=== PATIENT | male | born 1990 | race Caucasian/White ===

== ENCOUNTER 2018-04-18 23:46 | Emergency (ER) | payer OTHER, SELFPAY ==
[2018-04-19] MEDS ORDERED: ONDANSETRON 4 MG (ODT) TAB ONE (00:35)
[2018-04-19] MEDS ORDERED: PROMETHAZINE 25 MG/ML VIAL ONE ×2 (01:05→01:48)
[2018-04-19] MEDS ORDERED: FENTANYL CITR 100 MCG/2 ML ONE (01:06)
[2018-04-19 01:27] LABS: Absolute Lymphocytes (CBC) 2.6 K/uL (0.7-4.9); Absolute Monocytes 0.7 K/uL (0.1-1.3); Absolute Neutrophil 3.4 K/uL (1.8-8.0); Basophils % 0.7 % (0-1.3); Eosinophils % 1.3 % (0-4.4); Hematocrit 43.1 % (39.6-49.0); Lymphocytes % 38.5 % (15.3-44.8); MCH 31.1 pg (27.0-35.0); MCV 86.1 fL (80-100); MPV 8.8 fL (7.6-11.3); Monocytes % 9.8 % (3.3-12.3); RBC Red Blood Cell Count 5.01 M/uL (4.33-5.43)
[2018-04-19 01:48] LABS: Potassium 3.8 mmol/L (3.5-5.1)
--- NOTE | 2018-04-19 02:00 | EDPHYS ---
Physician Documentation [facility] Name: Hever Knight Age: 27 yrs Sex: Male : 1990 Arrival Date: 04/18/2018 Time: 23:51 Bed 3 Private MD: ED Physician Claudio Felder HPI: 04/19 00:30 This 27 yrs old Male presents to ER via Wheelchair with complaints of Head jr8 Injury-Adult. 00:30 The patient or guardian reports a laceration, 2.5 cm(s), tenderness. The complaints jr8 affect the left side of the back of head. Onset: The symptoms/episode began/occurred acutely, today. Associated signs and symptoms: Loss of consciousness: This patient experience a loss of consciousness, Pertinent positives: nausea. Severity of symptoms: At their worst the symptoms were moderate, in the emergency department the symptoms are unchanged. The patient has not experienced similar symptoms in the past. The patient has not recently seen a physician. Patient was in L\T\D and had syncopal episode while epidural was being given to his . Stated that he had some nausea and dizziness prior to them starting the procedure. Usually does not have this problem. Currently back to baseline other then having nausea and headache . Historical: - Allergies: 00:19 Wasps; bb - Home Meds: 00:19 None [Active]; bb - PMHx: 00:19 None; bb - PSHx: 00:19 right talus; right wrist scope; dental surgery; bb - Immunization history:: Adult Immunizations up to date, Last tetanus immunization: up to date. - Social history:: Smoking status: Patient/guardian denies using tobacco, Patient uses alcohol, but reports only rare drinking. Patient/guardian denies using street drugs. - Ebola Screening: : No symptoms or risks identified at this time. ROS: 00:30 Eyes: Negative for injury, pain, redness, and discharge, ENT: Negative for injury, jr8 pain, and discharge, Neck: Negative for injury, pain, and swelling, Cardiovascular: Negative for chest pain, palpitations, and edema, Respiratory: Negative for shortness of breath, cough, wheezing, and pleuritic chest pain, Abdomen/GI: Negative for abdominal pain, vomiting, diarrhea, and constipation. Positive for nausea Back: Negative for injury and pain, MS/Extremity: Negative for injury and deformity. 00:30 Skin: Positive for laceration(s), of the left side of the back of head. 00:30 Neuro: Positive for headache, syncope, Negative for altered mental status, dizziness, gait disturbance, hearing loss, numbness, seizure activity, speech changes, tingling, tinnitus, tremor, visual changes, weakness. Exam: 00:30 Eyes: Pupils equal round and reactive to light, extra-ocular motions intact. Lids and jr8 lashes normal. Conjunctiva and sclera are non-icteric and not injected. Cornea within normal limits. Periorbital areas with no swelling, redness, or edema. ENT: Nares patent. No nasal discharge, no septal abnormalities noted. Tympanic membranes are normal and external auditory canals are clear. Oropharynx with no redness, swelling, or masses, exudates, or evidence of obstruction, uvula midline. Mucous membranes moist. Neck: Trachea midline, no thyromegaly or masses palpated, and no cervical lymphadenopathy. Supple, full range of motion without nuchal rigidity, or vertebral point tenderness. No Meningismus. Cardiovascular: Regular rate and rhythm with a normal S1 and S2. Grade 2 systolic murmur present. Normal PMI, no JVD. No pulse deficits. Respiratory: Lungs have equal breath sounds bilaterally, clear to auscultation and percussion. No rales, rhonchi or wheezes noted. No increased work of breathing, no retractions or nasal flaring. Abdomen/GI: Soft, non-tender, with normal bowel sounds. No distension or tympany. No guarding or rebound. No evidence of tenderness throughout. Back: No spinal tenderness. No costovertebral tenderness. Full range of motion. Skin: Warm, dry with normal turgor. Normal color with no rashes, no lesions, and no evidence of cellulitis. MS/ Extremity: Pulses equal, no cyanosis. Neurovascular intact. Full, normal range of motion. Neuro: Awake and alert, GCS 15, oriented to person, place, time, and situation. Cranial nerves II-XII grossly intact. Motor strength 5/5 in all extremities. Sensory grossly intact. Cerebellar exam normal. Normal gait. 00:30 Head/face: Noted is a laceration(s), that is deep, that is linear, 2.5 cm(s), of the left side of the back of head. Vital Signs: 00:19 BP 126 / 65; Pulse 45; Resp 16 S; Temp 97.1(TE); Pulse Ox 100% on R/A; Weight 90.72 kg bb (R); Height 6 ft. 5 in. (195.58 cm) (R); 00:52 BP 128 / 62; Pulse 44; Resp 16; Pulse Ox 100% on R/A; ak1 01:20 BP 133 / 67; Pulse 51; Resp 16; Pulse Ox 100% on R/A; ak1 00:19 Body Mass Index 23.72 (90.72 kg, 195.58 cm) Dorita Coma Score: 00:16 Eye Response: spontaneous(4). Verbal Response: oriented(5). Motor Response: obeys commands(6). Total: 15. 00:30 Eye Response: spontaneous(4). Verbal Response: oriented(5). Motor Response: obeys [facility] commands(6). Total: 15. Laceration: 01:53 Wound Repair of 2.5cm ( 1.0in ) subcutaneous laceration to left side of the back of jr8 head. Linear shaped.. Minimal bleeding noted.. Distal neuro/vascular/tendon intact. Wound prep: Moderate cleansing with hibiclenz, Wound irrigation with saline, Wound explored extensively. Skin closed with 2 adalberto Adalberto using staple gun. Patient tolerated well. MDM: 00:11 Patient medically screened. jr8 00:53 Data reviewed: vital signs, nurses notes, EKG, radiologic studies, CT scan. Data jr8 interpreted: Pulse oximetry: on room air is 100 %. Interpretation: normal. Counseling: I had a detailed discussion with the patient and/or guardian regarding: the historical points, exam findings, and any diagnostic results supporting the discharge/admit diagnosis, radiology results. ED course: Patient with history of murmur. Has had full work up by cardiology including echocardiogram. No acute findings and is benign per patient. This was more then likely vasovagal in nature. Feeling better. All vitals normal. Will send to f/u with PCP which patient is good with. 04/19 00:16 Order name: CBC with Diff jr8 04/19 00:16 Order name: CT Head Brain wo Cont jr8 04/19 00:58 Order name: CBC with Diff; Complete Time: 01:52 8 13 00:58 Order name: Basic Metabolic Panel; Complete Time: 01:52 04/19 00:16 Order name: EKG; Complete Time: 00:17 04/19 00:16 Order name: Cardiac monitoring; Complete Time: 00:41 04/19 00:16 Order name: EKG - Nurse/Tech; Complete Time: 00:40 04/19 00:16 Order name: O2 Per Protocol; Complete Time: 00:04/19 00:16 Order name: O2 Sat Monitoring; Complete Time: 00:04/19 00:58 Order name: IV; Complete Time: Administered Medications: 00:39 Drug: Zofran 4 mg Route: PO; ak1 01:12 Follow up: Response: Nausea unchanged ak1 :13 Drug: fentaNYL (PF) 25 mcg Route: IVP; Site: right antecubital; ak1 01:46 Follow up: Response: No adverse reaction ak1 01:14 CANCELLED (pt requested only 25mcg IVP, ERP notified): fentaNYL (PF) 50 mcg IVP once ak1 01:47 Not Given (Patient Refused): Phenergan 12.5 mg IVP once ak1 01:47 Drug: Phenergan 6.25 mg Route: IVP; Site: right antecubital; ak1 01:47 Follow up: Response: No adverse reaction ak1 Disposition: 06:48 Co-signature as Attending Physician, Claudio Felder MD I agree with the assessment and federico plan of care. Disposition: 04/19/18 01:59 Discharged to Home. Impression: Laceration without foreign body of scalp, Postconcussional syndrome. - Condition is Stable. - Discharge Instructions: Laceration Care, Adult, Post-Concussion Syndrome. - Prescriptions for ondansetron 4 mg Oral tablet,disintegrating - place 1 tablet by TRANSLINGUAL route every 6 hours As needed; 12 tablet. - Medication Reconciliation Form, Thank You Letter, Antibiotic Education, Prescription Opioid Use form. - Follow up: Private Physician; When: 5 - 6 days; Reason: Wound Recheck, Recheck today's complaints, Continuance of care, Staple/Suture removal, Re-evaluation by your physician. - Problem is new. - Symptoms have improved. Signatures: Dispatcher [employer] EDMS Claudio Felder MD MD cha Ballard, Brenda, RN RN Rolando Morris PA PA jr8 Padmini Light RN RN ak1 Corrections: (The following items were deleted from the chart) 00:28 00:16 IV Saline Lock ordered. 8 ak1 00:35 00:17 Chest Single View+RAD.RAD.BRZ ordered. EDCA EDCA 00:37 00:17 CBC with Automated Diff ordered. EDCA EDCA 00:37 00:17 PROTIME (+INR)+COAG.LAB.BRZ ordered. EDCA EDMS 00:38 00:17 Basic Metabolic Panel ordered. EDCA EDMS 00:38 00:17 MAGNESIUM+C.LAB.BRZ ordered. EDCA EDCA 00:38 00:17 PROBNP+C.LAB.BRZ ordered. EDCA EDCA 00:38 00:17 TROPONIN (EMERG DEPT USE ONLY)+C.LAB.BRZ ordered. [facility] EDCA 00:40 00:16 Labs collected and sent ordered. [facility] 00:53 00:30 Eyes: Pupils equal round and reactive to light, extra-ocular motions intact. Lids jr8 and lashes normal. Conjunctiva and sclera are non-icteric and not injected. Cornea within normal limits. Periorbital areas with no swelling, redness, or edema. ENT: Nares patent. No nasal discharge, no septal abnormalities noted. Tympanic membranes are normal and external auditory canals are clear. Oropharynx with no redness, swelling, or masses, exudates, or evidence of obstruction, uvula midline. Mucous membranes moist. Neck: Trachea midline, no thyromegaly or masses palpated, and no cervical lymphadenopathy. Supple, full range of motion without nuchal rigidity, or vertebral point tenderness. No Meningismus. Cardiovascular: Regular rate and rhythm with a normal S1 and S2. No gallops, murmurs, or rubs. Normal PMI, no JVD. No pulse deficits. Respiratory: Lungs have equal breath sounds bilaterally, clear to auscultation and percussion. No rales, rhonchi or wheezes noted. No increased work of breathing, no retractions or nasal flaring. Abdomen/GI: Soft, non-tender, with normal bowel sounds. No distension or tympany. No guarding or rebound. No evidence of tenderness throughout. Back: No spinal tenderness. No costovertebral tenderness. Full range of motion. Skin: Warm, dry with normal turgor. Normal color with no rashes, no lesions, and no evidence of cellulitis. MS/ Extremity: Pulses equal, no cyanosis. Neurovascular intact. Full, normal range of motion. Neuro: Awake and alert, GCS 15, oriented to person, place, time, and situation. Cranial nerves II-XII grossly intact. Motor strength 5/5 in all extremities. Sensory grossly intact. Cerebellar exam normal. Normal gait. jr8 01:14 00:58 fentaNYL (PF) 50 mcg IVP once ordered. jr8 ak1 02:14 01:59 04/19/2018 01:59 Discharged to Home. Impression: Laceration without foreign body ak1 of scalp; Postconcussional syndrome. Condition is Stable. Forms are Medication Reconciliation Form, Thank You Letter, Antibiotic Education, Prescription Opioid Use. Follow up: Private Physician; When: 5 - 6 days; Reason: Wound Recheck, Recheck today's complaints, Continuance of care, Staple/Suture removal, Re-evaluation by your physician. Problem is new. Symptoms have improved. jr8
--- NOTE | 2018-04-19 02:00 | ER ---
Nurse's Notes [facility] Name: Hever Knight Age: 27 yrs Sex: Male : 1990 Arrival Date: 04/18/2018 Time: 23:51 Bed 3 Private MD: Diagnosis: Laceration without foreign body of scalp;Postconcussional syndrome Presentation: 04/19 00:16 Presenting complaint: Mother states: pt was at 's epidural procedure and passed out bb hitting the back of his head and receiving a laceration with swelling, pt states he is nauseous. Transition of care: patient was not received from another setting of care. Mechanism of Injury: The problem was sustained at the hospital, resulted from a fall, from a standing position. Onset of symptoms was April 19, 2018. Risk Assessment: Do you want to hurt yourself or someone else? Patient reports no desire to harm self or others. Initial Sepsis Screen: Does the patient meet any 2 criteria? No. Patient's initial sepsis screen is negative. Does the patient have a suspected source of infection? No. Patient's initial sepsis screen is negative. Care prior to arrival: None. 00:16 Method Of Arrival: Wheelchair bb 00:16 Acuity: PURNIMA 3 bb Historical: - Allergies: 00:19 Wasps; bb - Home Meds: 00:19 None [Active]; bb - PMHx: 00:19 None; bb - PSHx: 00:19 right talus; right wrist scope; dental surgery; bb - Immunization history:: Adult Immunizations up to date, Last tetanus immunization: up to date. - Social history:: Smoking status: Patient/guardian denies using tobacco, Patient uses alcohol, but reports only rare drinking. Patient/guardian denies using street drugs. - Ebola Screening: : No symptoms or risks identified at this time. Screenin:40 Abuse screen: Denies threats or abuse. Denies injuries from another. Nutritional ak1 screening: No deficits noted. Tuberculosis screening: No symptoms or risk factors identified. Fall Risk Fall in past 12 months (25 points). Assessment: 00:40 General: Appears uncomfortable, Behavior is calm, cooperative. Pain: Complains of pain ak1 in left side of the back of head. Neuro: Level of Consciousness is awake, alert, obeys commands, Oriented to person, place, time, situation, Appropriate for age Immigration Attorney are equal bilaterally Moves all extremities. Gait is steady, Speech is normal, Facial symmetry appears normal. Cardiovascular: Reports he has had a hear mummer since childhood but failed to tell the provider upon assessment. ERP notified and new verbal orders given. Respiratory: No deficits noted. GI: Reports nausea. : No signs and/or symptoms were reported regarding the genitourinary system. EENT: No signs and/or symptoms were reported regarding the EENT system. Derm: Wound noted left side of the back of head Wound is laceration s/p fall after watching his receive her epidural while upstairs in L\T\D. Musculoskeletal: No signs and/or symptoms reported regarding the musculoskeletal system. 00:44 Reassessment: ice pack applied. ak1 00:54 Reassessment: supplies for ERP to staple or suture pt placed at bedside. . ak1 01:19 Reassessment: pt requested only 25 mcg fentanyl and no Phenergan as to not be drowsy ak1 for his child's delivery, ERP notified. Vital Signs: 00:19 BP 126 / 65; Pulse 45; Resp 16 S; Temp 97.1(TE); Pulse Ox 100% on R/A; Weight 90.72 kg bb (R); Height 6 ft. 5 in. (195.58 cm) (R); 00:52 BP 128 / 62; Pulse 44; Resp 16; Pulse Ox 100% on R/A; ak1 01:20 BP 133 / 67; Pulse 51; Resp 16; Pulse Ox 100% on R/A; ak1 00:19 Body Mass Index 23.72 (90.72 kg, 195.58 cm) bb Orchard Coma Score: 00:16 Eye Response: spontaneous(4). Verbal Response: oriented(5). Motor Response: obeys bb commands(6). Total: 15. 00:30 Eye Response: spontaneous(4). Verbal Response: oriented(5). Motor Response: obeys jr commands(6). Total: 15. ED Course: 04/18 23:51 Patient arrived in ED. es 04/19 00:11 Rolando Arevalo PA is PHCP. jr8 00:11 Claudio Felder MD is Attending Physician. jr8 00:18 Triage completed. bb 00:18 Krenek, Padmini, RN is Primary Nurse. ak1 00:19 Arm band placed on Patient placed in an exam room, on a stretcher, on pulse oximetry. bb Family accompanied patient. 00:40 Patient has correct armband on for positive identification. Bed in low position. Call ak1 light in reach. Side rails up X2. Adult w/ patient. hall monitor on. Pulse ox on. NIBP on. 00:54 CT Head Brain wo Cont In Process Unspecified. EDMS 01:48 No provider procedures requiring assistance completed. Inserted saline lock: 20 gauge ak1 in right antecubital area, using aseptic technique. ,using aseptic technique. placed by Oracio Panchal Blood collected. 02:05 CT completed. Patient tolerated procedure well. Patient moved to CT via stretcher. Patient moved back from CT. 02:09 IV discontinued, intact, bleeding controlled, No redness/swelling at site. Pressure ak1 dressing applied. Administered Medications: 00:39 Drug: Zofran 4 mg Route: PO; ak1 01:12 Follow up: Response: Nausea unchanged ak1 01:13 Drug: fentaNYL (PF) 25 mcg Route: IVP; Site: right antecubital; ak1 01:46 Follow up: Response: No adverse reaction ak1 01:14 CANCELLED (pt requested only 25mcg IVP, ERP notified): fentaNYL (PF) 50 mcg IVP once ak1 01:47 Not Given (Patient Refused): Phenergan 12.5 mg IVP once ak1 01:47 Drug: Phenergan 6.25 mg Route: IVP; Site: right antecubital; ak1 01:47 Follow up: Response: No adverse reaction ak1 Output: 00:59 Gastric: 800ml (Emesis); Total: 800ml. cb2 Outcome: 01:59 Discharge ordered by jrRayne 02:08 Discharged to pt to go back to L\T\D with and family ak1 02:08 Condition: improved 02:08 Discharge instructions given to patient, family, Instructed on discharge instructions, follow up and referral plans. no drinking with medication, no driving heavy equipment, medication usage, Demonstrated understanding of instructions, follow-up care, medications, Prescriptions given X 1. 02:14 Patient left the ED. ak1 Signatures: Dispatcher [employer] EDNancy Mcconnell Ervin Charisma Cortésa, RN RN bb Rolando Arevalo PA PA jr8 Padmini Light, RN RN ak1 Oracio Leong [facility]
--- NOTE | 2018-04-19 09:38 | RAD REPORT ---
EXAM DESCRIPTION: CT - Head Brain Wo Cont - 04/19/2018 5:24 am CLINICAL HISTORY: Head injury status post fall. Head pain. Loss of consciousness COMPARISON: None. TECHNIQUE: Computed axial tomography of the head was obtained. IV contrast was not requested. Prelim inary report was generated by ADINCON and reviewed prior to this dictation All CT scans are performed using dose optimization technique as appropriate and may include automated exposure control or mA/KV adjustment according to patient size. FINDINGS: A left parietal scalp hematoma is present without underlying skull fracture. An intracranial bleed is not seen . The ventricles are normal in caliber. No extra-axial fluid collection is noted. Fluid within the sinuses/ mastoids is not seen. IMPRESSION: No acute intracranial abnormality is seen. If patient's symptoms persist MRI of the bra in would be recommended.
--- NOTE | 2018-04-19 11:05 | EKG ---
Test Date: 2018-04-19 Test Time: 00:34:11 Government Clerk: ALBERT MEASUREMENT RESULTS: Intervals: Rate: 47 MT: 138 QRSD: 100 QT: 464 QTc: 410 Aldrich: P: 51 MT: 138 QRS: 56 T: 55 INTERPRETIVE STATEMENTS: Marked sinus bradycardia Abnormal ECG No previous ECG available for comparison Electronically Signed On 04-19-18 11:03:42 CDT by Gabriel Angel
== END 2018-04-19 02:14 | disposition home or self-care (01) ==
LOC: ER 23:46
PROC: 0JQ00ZZ Repair Scalp Subcutaneous Tissue and Fascia, Open Approach (ICD-10-PCS; principal; 2018-04-19)
DX: S01.01XA Laceration without foreign body of scalp, initial encounter (principal); F07.81 Postconcussional syndrome; W18.39XA Other fall on same level, initial encounter; Y93.89 Activity, other specified; Y92.89 Other specified places as the place of occurrence of the external cause; Z91.038 Other insect allergy status
CPT/HCPCS: 36415; 70450; 80048; 85025; 93005; 96374; 96375; 99285; J2550; J3010

== ENCOUNTER 2023-03-28 15:20 | Emergency (ER) | payer OTHER, SELFPAY ==
--- OUTSIDE RECORDS SUMMARY | 2023-03-28 15:25 | XMS REPORT | Continuity of Care Document ---
:[address] [facility] t Address [address] [place] [address] [place] [id number] Care Team Providers Name Role Phone Asked, No Pcp Primary Care Physician Unavailable MICHAEL DE LOS SANTOS Attending Clinician Unavailable MD MICHAEL DE LOS SANTOS Attending Clinician Unavailable Seth Gutierrez Attending Clinician Unavailable MICHAEL DE LOS SANTOS Admitting Clinician Unavailable MD MICHAEL DE LOS SANTOS Admitting Clinician Unavailable Physician, No Primary or Family Admitting Clinician Unavaila ble Payers Payer Name Policy Type Policy Number Effective Date Expiration Date S ource Problems Condition Condition Condition Status Onset Resolution Last Treating Co mments Source Name Details Category Date Date Treatment Clinician Date Deviated Deviated Disease Active Metho di nasal nasal 8-[facility] st septum septum 00:00: [facility]osp[facility] 00 l Hypertroph Hypertroph Disease Active M ethodi y of nasal y of nasal 8-13 st turbinates turbinates 00:00: Ho spita 00 l Chronic Chronic Disease Active [facility] maxillary maxillary 8-13 st sinusitis sinusitis 00:00: [facility] l Chronic Chronic Disease Active [facility] frontal frontal 8-13 st sinusitis sinusitis 00:00: [facility] 00 l Chronic Chronic Disease Active [facility] 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 00:00: [facility] 00 l Allergies, Adverse Reactions, Alerts Allergy Allergy Status Severity Reaction(s) Onset Inactive Treating Comm ents Source Name Type Date Date Clinician Venom-Wa Propensi Active Swelling tongue Meth good sp ty to 8 st adverse 00:00: Hospita reaction 00 l s to drug clavulan DA Active U 0 [facility] ic acid 05-05 Clear 00:00: Dove 00 [facility] amoxicil DA Active U 0 [facility] levi 05-05 Clear 00:00: Dove 00 [facility] clavulan DA Active U RASH-HIVES [facility] ic acid 05-05 Clear 00:00: Dove 00 [facility] amoxicil DA Active U RASH-HIVES 0 [facility] levi 05-05 Clear 00:00: Dove [facility] WASPS DA Active SV ANAPHYLAXIS [facility] 05-04 Clear 00:00: Dove 00 [facility] Social History Social Habit Start Date Stop Date Quantity Comments Source Gender identity [facility] History of tobacco Snuff User [facility] Alcohol intake 2021-03-22 2021-03-22 0 /d [facility]00 [facility] History of Social 2021-03-22 2021-03-[address] function 00:00:00 00:00:00 Hospital Cigarette 2021-03-15 2021-03-15 [facility] 00:[facility]:00:00 [facility] Tobacco use and 2021-03-15 2021-03-15 [facility] of [facility] exposure 00:00:00 00:00:00 smokeless Hospital tobacco Sex Assigned At [birth year] [facility] 00:[facility] Smoking Status Start Date Stop Date Source Ex-smoker 2021-03-15 00:00:00 2021-03-15 00:00:00 [facility] Medications Ordered Filled Start Stop Current Ordering Indication Dosage Frequency Signature Comments Components Source Medication Medication Date Date Medication? Clinician (SIG) Name Name sertraline Yes 50mg QD Take 50 mg M ethodi (ZOLOFT) 50 8-[address] MG tablet 14:25: nightly. [facility] l Procedures This patient has no known procedures. Plan of Care Planned Activity Planned Date Details Comments Source Future Scheduled 2023-03-12 COVID-19 VACCINE [facility] Test 21:46:49 (#1) [code = COVID-19 VACCINE (#1)] Future Scheduled 2023-03-12 Hepatitis C [facility] 21:46:49 screening (procedure) [code = 410222391] Future Scheduled 2023-03-12 INFLUENZA VACCINE [facility] Test 21:46:49 [code = INFLUENZA VACCINE] Encounters Start End Encounter Admission Attending Care Care Encounter Source Date/Time Date/Time Type Type Clinicians Facility Department ID 2020-05-04 Inpatient HCAPM LYDIA [id number] [facility] 18:49:00 56 [facility] 2021-03-19 2021-03-19 Outpatient [facility] [id number] 542 [place] 00:00:00 00:00:00 MICHAEL 008 Method i 2021-03-15 2021-03-15 [facility] [id number] [place] 00:00:00 00:00:00 MICHAEL [address] 2020-05-04 2020-05-04 Outpatient CARLA GutierrezCL LABO [id number] [facility] 23:38:00 23:38:00 Oladipo 89 [facility] Results Test Description Test Time Test Comments Results Result Comments Source SARS-CoV-2 (COVID-19) RNA [Presence] in Respiratory sp ecimen by 2021-03-15 21:45:41 JD with probe detection Test Item Value Reference Range Interpretation Comme nts SARS-CoV-2 (COVID-19) RNA [Presence] in Respiratory Not detected No t-Detected specimen by JD with probe detection (test code = 40977-8) Whether patient is employed in a healthcare setting (test code = 32468-4) Whether the patient has symptoms related to condition of interest (test code = 86454-8) Patient was hospitalized because of this condition (test code = 71243-3) Whether the patient was admitted to intensive care unit (ICU) for condition of interest (test code = 31895-6) Whether patient resides in a congregate care setting (test code = 25085-7) [facility] [id number] 17:09:00 Test Item Value Reference Range Interpretation Comments ST COLOR (test code = Brown () COLST) ST SIZE (test code = 2x2 mm () Single piece received. SIZST) ST WEIGHT (test code = 13 mg () WGTST) ST COMPOSITION (test Comment () Percent age (Represents code = COMPST) the % composi tion) ST CA OXALATE 60 % () DIHYDRATE (test code = CAOXDST) ST CA OXALATE 35 % () MONOHYDRATE (test code = CAOXMST) ST PHOTO (test code = Comment () Photog raph will follow PHOTST) under a separat e cover ST COMMENT 3 (test Comment () Physician questions code = CMTST3) regarding Matthew [facility]i [facility] at: . - XR FLUOROSCOPY 0-60 [id number] 07:05:00 Name: HEVER SHI [place] : 1990 Age/S: 29 / M [id number] Unit #: [id number] Loc: [place] [address] Phys: Seth Gutierrez MD Acct: [id number] Dis Date: 20200505 Status: DIS IN PHONE #: [phone] Exam Date: 05/05/2020 1614 FAX #: Reason: CYSTO RETROGRADE PYELOGRAM URETEROSCOPY EXAMS: CPT: [id number] XR FLUOROSCOPY 0-60 MIN 02349 Fluoro Time: 25 DAP (Gy m2): Air Kerma (mGy): 4.97 EXAM: - XR FLUOROSCOPY 0-60 MIN INDICATION: CYSTO RETROGRADE PYELOGRAM URETEROSCOPY LOCATION: T18 Fluoroscopy time 25.1seconds. Radiation dose 4.97mGy. 3 images. Examination is performed intraoperatively by the referring physician. Images are later provided for documentation of fluoroscopy, and limited interpretation. Therefore, the interpreting radiologist is not present for the procedure, or during administration of the fluoroscopy. Please refer to the operative note for full details of the procedure. Impression: Intraoperative assessment demonstrates placement of a right ureteral stent. at 0705 Reported and signed by: Chino Casarez M.D. CC: Seth Gutierrez MD PAGE 1 Signed Report Name: HEVER SHI [place] : 1990 Age/S: 29 / M [address] Unit #: [id number] Loc: [place] [address] Phys: Seth Gutierrez MD Acct: [id number] Dis Date: 20200505 Status: DIS IN PHONE #: [phone] Exam Date: 05/05/2020 1615 FAX #: Reason: CYSTO RETROGRADE PYELOGRAM URETEROSCOPY EXAMS: CPT: [id number] XR FLUOROSCOPY 0-60 MIN 78584 F luoro Time: 25 DAP (Gy m2): Air Kerma (mGy): 4.97 (Continued) Technologist: Ilene Baron, RT(R) Trnscb Date/Time: 05/06/2020 (704) [id number] Orig Print D/T: S: 05/06/2020 (707) PAGE 2 Signed ReportBASIC METABOLIC [id number] 03:50:00 Test Item Value Reference Range Interpretation Comments SODIUM (test code = NA) 139 mmol/L 134-147 N POTASSIUM (test code = 3.7 mmol/L 3.4-5.0 N K) CHLORIDE (test code = 108 mmol/L 100-108 N CL) CARBON DIOXIDE (test 27 mmol/L 21-32 N code = CO2) ANION GAP (test code = 4.0 GAP calc 4.0-15.0 N GAP) GLUCOSE (test code = 96 MG/DL 70-110 N GLU) BLOOD UREA NITROGEN 20 MG/DL 7-18 H (test code = BUN) GLOMERULAR FILTRATION >=60 max estimate >60 RATE (test code = GFR) estGFR CREATININE (test code = 1.3 MG/DL 0.8-1.3 N CREAT) CALCIUM (test code = CA) 8.5 MG/DL 8.5-10.1 N CBC W/AUTO [id number] 03:34:00 Test Item Value Reference Range Interpretation Comments WHITE BLOOD CELL (test code = 7.0 K/mm3 3.5-11.0 N WBC) RED BLOOD CELL (test code = 4.15 M/mm3 4.70-6.10 L RBC) HEMOGLOBIN (test code = HGB) 12.7 G/DL 12.3-15.9 N HEMATOCRIT (test code = HCT) 36.2 % 35.8-46.7 N MEAN CELL VOLUME (test code = 87.2 Fl 86.3-98.9 N MCV) MEAN CELL HGB (test code = MCH) 30.6 pg 28.9-34.4 N MEAN CELL HGB CONCETRATION 35.1 G/DL 32.1-34.5 H (test code = MCHC) RED CELL DISTRIBUTION WIDTH 12.5 SD 11.5-14.5 N (test code = RDW) PLATELET COUNT (test code = 190 K/mm3 150-450 N PLT) MEAN PLATELET VOLUME (test code 9.90 fL 7.0-9.6 H = MPV) NEUTROPHIL % (test code = NT%) 63.1 % 40-76 N IMMATURE GRANULOCYTE % (test 0.3 % 0.0-5.0 N code = IG%) LYMPHOCYTE % (test code = LY%) 19.6 % 20.5-51.1 L MONOCYTE % (test code = MO%) 15.0 % 1.7-9.3 H EOSINOPHIL % (test code = EO%) 1.6 % 0.0-6.0 N BASOPHIL % (test code = BA%) 0.4 % 0.0-2.0 N NUCLEATED RBC % (test code = 0.0 /100WBC% 0.0-1.0 N NRBC%) NEUTROPHIL # (test code = NT#) 4.4 K/mm3 1.8-7.6 N IMMATURE GRANULOCYTE # (test 0.02 x10 3/uL 0.00-0.03 N code = IG#) LYMPHOCYTE # (test code = LY#) 1.4 K/mm3 0.6-3.0 N MONOCYTE # (test code = MO#) 1.0 K/mm3 0.2-1.5 N EOSINOPHIL # (test code = EO#) 0.1 K/mm3 0.0-0.4 N BASOPHIL # (test code = BA#) 0.0 K/mm3 0.0-0.2 N NUCLEATED RBC # (test code = 0.0 K/mm3 0.00-0.01 N NRBC#) MANUAL DIFF REQUIRED (test code NO DIFF/SCN CRITERIA = MDIFF) Coronavirus 2019 nCoV [id number] 20:50:00 Test Item Value Reference Range Interpretation Comments Coronavirus 2019 nCoV Negative Negative Per oriana regan Bedside (test code = negativ e results should [id number]) be treated aspresumptive a nd, if inconsistent wi th clinical signs andsymptoms or necessary for p atient management, frederick johnston betested with a n alternative mol ecular assay. Negative resultsdo not p reclude SARS-CoV-2 infe ction and should not be usedas the sole basis for patient man agement decisions. Nega tive results should be considered in t he context of apat ient's recent exposure s, history, presen ce of clinicalsigns a nd symptoms consis tent with COVID-19. UA RFLX MICR CULT IF [id number] 20:20:00 Test Item Value Reference Range Interpretation Comments UA COLOR (test code = YELLOW discript YEL/STRAW COLU) UA APPEARANCE (test code CLEAR discript CLEAR = APPU) UA GLUCOSE DIPSTICK (test NEGATIVE mg/dL NEG code = DGLUU) UA BILIRUBIN DIPSTICK NEGATIVE mg/dL NEG (test code = BILU) UA KETONE DIPSTICK (test NEGATIVE mg/dL NEG code = KETU) UA SPECIFIC GRAVITY (test <=1.005 SG 1.005-1.030 code = SGU) UA BLOOD DIPSTICK (test TRACE mg/DL NEG code = ISIAH) UA PH DIPSTICK (test code 6.0 pH UNITS 5.0-7.0 = AVIVA) UA PROTEIN DIPSTICK (test NEGATIVE mg/dL NEG code = PROU) UA UROBILINIOGEN DIPSTICK 0.2 mg/dL <2.0 (test code = URO) UA NITRITE DIPSTICK (test NEGATIVE SCREEN NEG code = DEONTE) UA LEUKOCYTE ESTERASE NEGATIVE Leuk/mcL NEGATIVE DIPSTICK (test code = LEUU) UA WBC (test code = WBCU) 0-1 #WBC/HPF 0-3 UA RBC (test code = RBCU) 0-1 #RBC/HPF 0-3 UA BACTERIA (test code = NONE SEEN /HPF NONE-TRACE BACU) UA SQUAMOUS CELLS (test NONE SEEN /HPF NONE code = SQU) UA CULTURE NEEDED? (test NO, WBC<10 Criteria Culture CHK code = UACULT) SOURCE OF URINE: CLEAN CATCHIndication for culture: Flank PainUA RFLX MICR CULT IF [id number] 20:18:00 Test Item Value Reference Range Interpretation Comments UA COLOR (test code = COLU) discript YEL/STRAW UA APPEARANCE (test code = discript CLEAR APPU) UA GLUCOSE DIPSTICK (test NEGATIVE mg/dL NEG code = DGLUU) UA BILIRUBIN DIPSTICK (test NEGATIVE mg/dL NEG code = BILU) UA KETONE DIPSTICK (test NEGATIVE mg/dL NEG code = KETU) UA SPECIFIC GRAVITY (test <=1.005 SG 1.005-1.030 code = SGU) UA BLOOD DIPSTICK (test TRACE mg/DL NEG code = ISIAH) UA PH DIPSTICK (test code = 6.0 pH UNITS 5.0-7.0 AVIVA) UA PROTEIN DIPSTICK (test NEGATIVE mg/dL NEG code = PROU) UA UROBILINIOGEN DIPSTICK 0.2 mg/dL <2.0 (test code = URO) UA NITRITE DIPSTICK (test NEGATIVE SCREEN NEG code = DEONTE) UA LEUKOCYTE ESTERASE NEGATIVE Leuk/mcL NEGATIVE DIPSTICK (test code = LEUU) UA CULTURE NEEDED? (test Criteria Culture CHK code = UACULT) SOURCE OF URINE: CLEAN CATCHIndication for culture: Flank Pain Notes Date/Time Note Provider Source 2020-05-06 09:27:00-00:00 [id number] [address] PATIENT NAME: HEVER SHI ADMIT DATE: 05/04/20 ACCOUNT NO: [id number] ROOM NO: [place] [address] AGE: 29 REPORT TYPE: OPERATIVE REPORT SEX: M ADMITTING PHYSICIAN: Seth Gutierrez MD ATTENDING PHYSICIAN: Seth Gutierrez MD OPERATION DATE: 05/05/2020 PREOPERATIVE DIAGNOSIS: Right ureteral calculus. POSTOPERATIVE DIAGNOSIS: Right ureteral calculus . PROCEDURES PERFORMED: 1. Cystoscopy. 2. Right ureteroscopy. 3. Laser lithotripsy. 4. Retrograde pyelogram with interpretation. 5. Right ureteral stent placement. SURGEON: Cleve Le MD [employer] MANAGEMENT OFFICER: ANESTHESIA: DRAINS PLACED: A 6 x [address] ent with retrieval string. FINDINGS: A 4 mm distal right ureteral calculus, mild right hydroureteronephrosis. SPECIMEN OBTAINED: Stone for analysis. INDICATIONS FOR PROCEDURE: Jaime Shi is a 29-year-old gentleman who 1 month ago and had a sudden onset of right-sided flank pain. He went to an outside Emergency Room where CT scan showed a 4 mm stone in the right distal ureter, he was discharged for urologic followup. The patient did not have pain again until last night when he again exp erienced a sudden onset of severe right-sided flank pain. A repeat CT scan showed essentially no mov ement of the stone and he was transferred here for urologi c evaluation. I discussed that since there has been no progression and stone movement and he continu es to experience pain, I recommend proceeding with ureteroscopy to extrac t the stone. I went over the indication, nature of the procedure and the asso ciated risks and possible complication. He stated understanding and wished to proceed. PROCEDURE IN DETAIL: The patient was brought [facility] to the OR on 05/05/2020. He had anesthesia inducted without any comp lication. He was placed into a dorsal lithotomy position and genitalia was prepped and draped in usual standard sterile manner. At this point, I inserted a 22-F rench rigid cystourethroscope PATIENT NAME: HEVER SHI into his penis and advanced this to the bladder. There was no urethral or prostatic abnormalities noted. Once in the [facility] er, I performed a systematic evaluation without any findi ngs of any masses, tumors, or lesions. I identified the right ureteral orifice in normal orthotopic position. I cannulated the right ureteral orifice with a guidewire, initial ly there was some difficulty advancing the wire, but afte r manipulation, I was able to advance the wire into the renal pelvis. I then advanced a 7-American ure teroscope alongside the wire and encountered the stone in the distal ureter and I performed laser lithotripsy to fragment the stone into 2 and then jamarcus rodriguez extracted these fragments. I then advanced the ureteroscope al ongside the wire to the proximal ureter without any additional findings of stones. I then withdrew t he scope. I performed a retrograde pyelogram and ureterogram, wh ich showed mild hydroureteronephrosis. I then advanced a 6 x 26 [employer] Beauty ureteral s tent over the wire, it was confirmed to be in good position proxima lly and distally. Retrieval string was secured to his pubis. This marked the completion o f the procedure, the patient tolerated the procedure well. There were no complications. Dictated By: Cleve Le MD WT: OP:LOJANA/CAT/ABDIRASHID Conf#: [id number]/DID#: [id number] Authenticated by Cleve Le MD On 05/06/2020 01 :07:01 PM Electronically Signed by Cleve Le MD on at 1307 PATIENT NAME: HEVER SHI 2020-05-05 17:16:00-00:00 [facility] ([facility]) Post Anesthesia Evaluation REPORT#:[id number] REPORT STATUS: Signed DATE:05/05/20 TIME:1716 PATIENT: HEVER SHI UNIT #: [id number] ROOM/BED: [place] [address] : 89 AGE: 29 SEX: M ATTEND: Akhil Gutierrez MD ADM AUTHOR: Linda Aguayo MD * ALL edits or amendments must be made on the [employer]/computer document * General Post-op: post surgery rounds Post Anesthesia Evaluation Anes. changes from pre-op eval ORM Surgeries: Surgery Date and Time: 05/05/2020 1600 Primary Procedure: CYSTO RETROGRADE PYELOGRAM Secondary Procedures: URETEROSCOPY W/LASER LITH OTRIPSY URETERAL STENT INSERTION Anesthetic: general LMA Date: 05/05/20 Level of consciousness: marbin ent awake, able to answer questions, participate in this eval. Vital signs: Last Documented: Result Date Time Pulse Ox 100 05/05 1645 B/P 123/79 05/05 1645 O2 Delivery Room air 05/05 1645 Pulse 54 05/05 1645 Resp 16 05/05 1645 Temp 36.2 05/05 1625 O2 Flow Rate 8 05/05 1617 B/P Mean 91.5 05/05 1150 Last Documented: Result Date Time Pulse Ox 100 05/05 1645 B/P 123/79 05/05 1645 O2 Delivery Room air 05/05 1645 Pulse 54 05/05 1645 Resp 16 05/05 1645 Temp 36.2 05/05 1625 O2 Flow Rate 8 05/05 1617 B/P Mean 91.5 05/05 1150 Cardiovascular: CV system stable, vital signs st able Respiratory/Airway: respiratory system stable, m aintains without support Pain: adequately controlled Hydration: adequate, euvolemic Temp status: greater than 96.8F, normothermic Presence of N/V: no Anesthesia complications: no Other changes requiring f/u: none Conclusions: no apparent anes. issues Electronically Signed by Linda Aguayo MD on 04/08 04/26 at 1717 RPT #: [id number] END OF REPORT 2020-05-05 16:10:00-00:00 [facility] ([facility]) Brief Op Note REPORT#:[id number] REPORT STATUS: Signed DATE:05/05/20 TIME:1609 PATIENT: HEVER SHI UNIT #: [id number] ROOM/BED: [place] [address] : 89 AGE: 29 SEX: M ATTEND: Akhil Gutierrez MD ADM AUTHOR: Cleve Le MD * ALL edits or amendments must be made on the el [employer]/computer document * Op/Inv Proc Note - Brief Pre-procedure diagnosis: right ureteral calculi Post-procedure diagnosis: same as pre procedure dx Procedures performed: right ureteroscopy, laser lithotripsy, stent jaya cement Primary Surgeon: magnolia Operations Assistant(s): none Findings: 4mm distal right ureteral calculi Complications: none Estimated blood loss in ml's: none Specimens removed/altered: none (stone for tony sis) Drain(s): 6 x 26 bb with string Electronically Signed by Cleve Le MD on 04/08 04/26 at 1611 RPT #: [id number] END OF REPORT 2020-05-05 15:13:00-00:00 [id number] [address] PATIENT NAME: HEVER SHI ADMIT DATE: 05/04/20 ACCOUNT NO: [id number] ROOM NO: [place] [address] AGE: 29 REPORT TYPE: CONSULTATION SEX: M ADMITTING PHYSICIAN: Seth Gutierrez MD ATTENDING PHYSICIAN: Seth Gutierrez MD CONSULTATION DATE: 05/05/2020 CONSULTING PHYSICIAN: Cleve Le MD CONSULTING PHYSICIAN: Cleve Le MD REQUESTING PHYSICIAN: Seth Gutierrez MD REASON FOR CONSULTATION REQUEST: Urinary calculu s. HISTORY OF PRESENT ILLNESS: Mr. Hever miranda is a 29-year-old gentleman who about a month ago experienced a vasquez dden onset of right-sided flank pain. He went to an outside Emergency Room where a CT scan showed a 4 mm distal right ureteral calculus. The patient was discharged for urologi c followup. He states that he did well over the past month, but again last ghada, he experienced a sudden onset of severe right-sided flank pain. He went back to his local Emergency Room where a CT scan was repeated. There was a 4 -mm distal right ureteral calculus associated with mild hydronephr osis. The patient was transferred here for urologic evaluation. REVIEW OF SYMPTOMS: No fevers, no chills. Positi ve for nausea. No vomiting. No chest pain, no shortness of breath. No dysuri a. No gross hematuria. Otherwise, negative 10-point review of systems. PAST MEDICAL HISTORY: Denies. PAST SURGICAL HISTORY: Denies. SOCIAL HISTORY: Negative x3. FAMILY HISTORY: Reviewed and noncontributory. PHYSICAL EXAMINATION: VITAL SIGNS: T-max is 36.8, pulse is 53, and blo od pressure 126/74. GENERAL: The patient not in acute distress, aler t, awake, and oriented. HEENT: Atraumatic, normocephalic. EOMI. NECK: Supple. Trachea midline. LUNGS: Normal respiratory effort, nonlabored jody athing. ABDOMEN: Soft, nontender, and nondistended. No C VA tenderness. EXTREMITIES: No clubbing, cyanosis, or edema. PERTINENT LABORATORY DATA: His creatinin e is 1.3, BUN of 20. White count of 7, PATIENT NAME: HEVER SHI hemoglobin count of 12.7. Urinalysis shows negat fanny leukocyte esterase, negative nitrites, negative for rbc's. PERTINENT IMAGING: Outside CT scan shows a 4-mm stone in the right distal ureter with mild hydroureteronephrosis. ASSESSMENT AND PLAN: The patient with an obstruc ting right ureteral calculus, he essentially had no progression of the stone i n the last month on repeat imaging, therefore I recomme nded we proceed with ureteroscopy, stone extraction with laser lithotripsy. I went over the indicati on, nature of procedure and associated risks and possibl e complications. He stated understanding and wishes to proceed. I anticipated he can be discharged a fter the procedure this afternoon. Dictated By: Cleve Le MD WT: CON:LJOANA/CAT/ABDIRASHID Conf#: [id number]/DID#: [id number] Authenticated by Cleve Le MD On 05/06/2020 01 :06:47 PM Electronically Signed by Cleve Le MD on at 1307 PATIENT NAME: HEVER SHI 2020-05-05 09:38:00-00:00 [facility] ([facility] Hospitalist Progress Note REPORT#:[id number] REPORT STATUS: Signed DATE:05/05/20 TIME:937 PATIENT: HEVER SHI UNIT #: [id number] [place] [facility] [place] [birth year] AGE: 29 SEX: M ATTEND: Akhil Gutierrez MD ADM AUTHOR: Mick Connor MACHINE STAMPER * ALL edits or amendments must be made on the [employer]/computer document * Subjective Chief Complaint: c/o allergy; itching/watery eyes Patient reports: Yes: complaints (allergy seasonal). Nursing reports: No: complaints. Review of Systems Constitutional: Denies: chills, fever. Skin: Denies: bruising, rash. Eyes: Denies: visual loss/blurred, eye pain. ENT: Denies: nasal congestion, sore throat. Respiratory: Denies: productive cough (sputum), SOB. Cardiovascular: Denies: chest pain, palpitations. GI: Reports: abdominal pain, nausea, vomiting. : Reports: flank pain, frequency, urgency. Denies: dysuria, hematuria. Musculoskeletal: Denies: extremity pain, extremity swelling. Neuro: Denies: dizziness, headache, syncope. Objective General VS/I O: Vital Signs: Date Time Temp Pulse Resp B/P B/P Pulse O2 O2 F low FiO2 Mean Ox Delivery Rate 05/05 1150 36.8 53 18 126/74 91.5 100 05/05 0712 36.8 86 18 145/80 101.9 98 05/05 0600 41 16 132/73 97 100 05/05 0400 36.1 05/05 0400 42 14 117/65 83 98 05/05 0200 43 15 124/65 85 98 05/05 0000 36.4 05/05 0000 56 18 133/64 92 97 05/04 2140 36.7 53 19 148/74 98 100 Room air 05/04 2137 52 16 148/74 101 100 05/04 1927 44 16 141/77 98 100 Room air 05/04 1852 36.7 44 16 150/76 100 99 Room air 24 hour I O ending at 0700: 05/05 0700 05/04 1900 Intake Total 625.00 Output Total Balance 625.00 Intake, IV 525.00 Intake, Oral 100 Number Voids 2 Patient 84 kg Weight Weight Stated/Reported Measurement Method Patient Weight Weight (lb): Weight (oz): Weight (kg): 84.000 Physical Exam General appearance: alert, awake, oriented Head/Eyes: atraumatic, normocephalic ENT: moist mucosal membranes, normal nose Neck: supple/no meningismus, no JVD Cardiovascular: normal capillary refill, normal heart sounds, regular rate rhythm Respiratory: clear to auscultation, symmetric ex pansion, no distress Abdomen: tenderness (RLQ, R CVA tenderness), sof t, no distention Extremities: moves all, no edema Neuro/OPHTHALMOLOGIST RETINA SPECIALIST: alert, normal speech Results Findings/Data: Laboratory Tests 05/05 0320 Chemistry Sodium (134 - 147 mmol/L) 139 Potassium (3.4 - 5.0 mmol/L) 3.7 Chloride (100 - 108 mmol/L) 108 Carbon Dioxide (21 - 32 mmol/L) 27 Anion Gap (4.0 - 15.0 GAP calc) 4.0 BUN (7 - 18 MG/DL) 20 H Creatinine (0.8 - 1.3 MG/DL) 1.3 Glomerular Filtr Rate (>60 estGFR) >=60 max est imate Glucose (70 - 110 MG/DL) 96 Calcium (8.5 - 10.1 MG/DL) 8.5 Laboratory Tests 05/05 0320 Hematology WBC (3.5 - 11.0 K/mm3) 7.0 RBC (4.70 - 6.10 M/mm3) 4.15 L Hgb (12.3 - 15.9 G/DL) 12.7 Hct (35.8 - 46.7 %) 36.2 MCV (86.3 - 98.9 Fl) 87.2 MCH (28.9 - 34.4 pg) 30.6 MCHC (32.1 - 34.5 G/DL) 35.1 H RDW (11.5 - 14.5 SD) 12.5 Plt Count (150 - 450 K/mm3) 190 MPV (7.0 - 9.6 fL) 9.90 H Neut % (Auto) (40 - 76 %) 63.1 Lymph % (Auto) (20.5 - 51.1 %) 19.6 L Lyon % (Auto) (1.7 - 9.3 %) 15.0 H Eos % (Auto) (0.0 - 6.0 %) 1.6 Baso % (Auto) (0.0 - 2.0 %) 0.4 Neut # (Auto) (1.8 - 7.6 K/mm3) 4.4 Lymph # (Auto) (0.6 - 3.0 K/mm3) 1.4 Lyon # (Auto) (0.2 - 1.5 K/mm3) 1.0 Eos # (Auto) (0.0 - 0.4 K/mm3) 0.1 Baso # (Auto) (0.0 - 0.2 K/mm3) 0.0 Abs Immat Gran (auto) (0.00 - 0.03 x10 3/uL) 0. 02 Add Manual Diff (CRITERIA DIFF/SCN) NO Immature Gran % (0.0 - 5.0 %) 0.3 Nucleated RBC % (0.0 - 1.0 /100WBC%) 0.0 Laboratory Tests 05/04 1943 Serology Nasal/Oral COVID-19 PCR (Negative) Negative Laboratory Tests 05/04 1952 Urines Urine Color (YEL/STRAW discript) YELLOW Urine Appearance (CLEAR discript) CLEAR Urine pH (5.0 - 7.0 pH UNITS) 6.0 Ur Specific Uehling (1.005 - 1.030 SG) <=1.005 Urine Protein (NEG mg/dL) NEGATIVE Urine Glucose (UA) (NEG mg/dL) NEGATIVE Urine Ketones (NEG mg/dL) NEGATIVE Urine Blood (NEG mg/DL) TRACE Urine Nitrite (NEG SCREEN) NEGATIVE Urine Bilirubin (NEG mg/dL) NEGATIVE Urine Urobilinogen (<2.0 mg/dL) 0.2 Ur Leukocyte Esterase (NEGATIVE Leuk/mcL) NEGA TIVE Urine RBC (0 - 3 #RBC/HPF) 0-1 Urine WBC (0 - 3 #WBC/HPF) 0-1 Ur Squamous Epith Cells (NONE /HPF) NONE SEEN Urine Bacteria (NONE - TRACE /HPF) NONE SEEN Urine Culture Screen (Culture CHK Criteria) NO, WBC<10 Results: vital signs stable, current med profile rev'd Diagnosis, Assessment Plan Consultants: urology Free Text DxA P Notes Free text DxA P notes: Assessment: Right distal ureterolithiaisis with mild hydrour eteronephrosis Right flank pain Plan: IVF hydration, pain and nausea control Will consult Urology Place NPO after midnight for possible ureterolit hotripsy tomorrow DVT prophylaxis with SCDs 05/05/20 # Right distal ureterolithiaisis with mild hydro ureteronephrosis with Right flank pain - UA negative - urology consulted - planned for ureterosccopy , lothotripsy and ri ght uretral stent placement - pain management # seasonal allergy - loratadine DVT/PPX - scd plan. ureteroscpy today Electronically Signed by Mick Connor NP on at 1415 RPT #: [id number] END OF REPORT 2020-05-05 09:38:00-00:00 [facility] ([facility]) Hospitalist Progress Note REPORT#:[id number] REPORT STATUS: Signed DATE:05/05/20 TIME:937 PATIENT: HEVER SHI UNIT #: [id number] [address] : 89 AGE: 29 SEX: M ATTEND: Akhil Gutierrez MD ADM AUTHOR: Mick Connor MACHINE STAMPER * ALL edits or amendments must be made on the CloudTalk/computer document * GeetaMick N. 05/05/20 0938: Subjective Chief Complaint: c/o allergy; itching/watery eyes Patient reports: Yes: complaints (allergy seasonal). Nursing reports: No: complaints. Review of Systems Constitutional: Denies: chills, fever. Skin: Denies: bruising, rash. Eyes: Denies: visual loss/blurred, eye pain. ENT: Denies: nasal congestion, sore throat. Respiratory: Denies: productive cough (sputum), SOB. Cardiovascular: Denies: chest pain, palpitations. GI: Reports: abdominal pain, nausea, vomiting. : Reports: flank pain, frequency, urgency. Denies: dysuria, hematuria. Musculoskeletal: Denies: extremity pain, extremity swelling. Neuro: Denies: dizziness, headache, syncope. Objective General VS/I O: Vital Signs: Date Time Temp Pulse Resp B/P B/P Pulse O2 O2 F low FiO2 Mean Ox Delivery Rate 05/05 1150 36.8 53 18 126/74 91.5 100 05/05 0712 36.8 86 18 145/80 101.9 98 05/05 0600 41 16 132/73 97 100 05/05 0400 36.1 05/05 0400 42 14 117/65 83 98 05/05 0200 43 15 124/65 85 98 05/05 0000 36.4 05/05 0000 56 18 133/64 92 97 05/04 2140 36.7 53 19 148/74 98 100 Room air 05/04 2137 52 16 148/74 101 100 05/04 1927 44 16 141/77 98 100 Room air 05/04 1852 36.7 44 16 150/76 100 99 Room air 24 hour I O ending at 0700: 05/05 0700 05/04 1900 Intake Total 625.00 Output Total Balance 625.00 Intake, IV 525.00 Intake, Oral 100 Number Voids 2 Patient 84 kg Weight Weight Stated/Reported Measurement Method Patient Weight Weight (lb): Weight (oz): Weight (kg): 84.000 Physical Exam General appearance: alert, awake, oriented Head/Eyes: atraumatic, normocephalic ENT: moist mucosal membranes, normal nose Neck: supple/no meningismus, no JVD Cardiovascular: normal capillary refill, normal heart sounds, regular rate rhythm Respiratory: clear to auscultation, symmetric ex pansion, no distress Abdomen: tenderness (RLQ, R CVA tenderness), sof t, no distention Extremities: moves all, no edema Neuro/OPHTHALMOLOGIST RETINA SPECIALIST: alert, normal speech Results Findings/Data: Laboratory Tests 05/05 320 Chemistry Sodium (134 - 147 mmol/L) 139 Potassium (3.4 - 5.0 mmol/L) 3.7 Chloride (100 - 108 mmol/L) 108 Carbon Dioxide (21 - 32 mmol/L) 27 Anion Gap (4.0 - 15.0 GAP calc) 4.0 BUN (7 - 18 MG/DL) 20 H Creatinine (0.8 - 1.3 MG/DL) 1.3 Glomerular Filtr Rate (>60 estGFR) >=60 max est imate Glucose (70 - 110 MG/DL) 96 Calcium (8.5 - 10.1 MG/DL) 8.5 Laboratory Tests 05/05 320 Hematology WBC (3.5 - 11.0 K/mm3) 7.0 RBC (4.70 - 6.10 M/mm3) 4.15 L Hgb (12.3 - 15.9 G/DL) 12.7 Hct (35.8 - 46.7 %) 36.2 MCV (86.3 - 98.9 Fl) 87.2 MCH (28.9 - 34.4 pg) 30.6 MCHC (32.1 - 34.5 G/DL) 35.1 H RDW (11.5 - 14.5 SD) 12.5 Plt Count (150 - 450 K/mm3) 190 MPV (7.0 - 9.6 fL) 9.90 H Neut % (Auto) (40 - 76 %) 63.1 Lymph % (Auto) (20.5 - 51.1 %) 19.6 L Lyon % (Auto) (1.7 - 9.3 %) 15.0 H Eos % (Auto) (0.0 - 6.0 %) 1.6 Baso % (Auto) (0.0 - 2.0 %) 0.4 Neut # (Auto) (1.8 - 7.6 K/mm3) 4.4 Lymph # (Auto) (0.6 - 3.0 K/mm3) 1.4 Lyon # (Auto) (0.2 - 1.5 K/mm3) 1.0 Eos # (Auto) (0.0 - 0.4 K/mm3) 0.1 Baso # (Auto) (0.0 - 0.2 K/mm3) 0.0 Abs Immat Gran (auto) (0.00 - 0.03 x10 3/uL) 0 .02 Add Manual Diff (CRITERIA DIFF/SCN) NO Immature Gran % (0.0 - 5.0 %) 0.3 Nucleated RBC % (0.0 - 1.0 /100WBC%) 0.0 Laboratory Tests 05/04 1943 Serology Nasal/Oral COVID-19 PCR (Negative) Negative Laboratory Tests 05/04 1952 Urines Urine Color (YEL/STRAW discript) YELLOW Urine Appearance (CLEAR discript) CLEAR Urine pH (5.0 - 7.0 pH UNITS) 6.0 Ur Specific Uehling (1.005 - 1.030 SG) <=1.005 Urine Protein (NEG mg/dL) NEGATIVE Urine Glucose (UA) (NEG mg/dL) NEGATIVE Urine Ketones (NEG mg/dL) NEGATIVE Urine Blood (NEG mg/DL) TRACE Urine Nitrite (NEG SCREEN) NEGATIVE Urine Bilirubin (NEG mg/dL) NEGATIVE Urine Urobilinogen (<2.0 mg/dL) 0.2 Ur Leukocyte Esterase (NEGATIVE Leuk/mcL) NEGAT FANNY Urine RBC (0 - 3 #RBC/HPF) 0-1 Urine WBC (0 - 3 #WBC/HPF) 0-1 Ur Squamous Epith Cells (NONE /HPF) NONE SEEN Urine Bacteria (NONE - TRACE /HPF) NONE SEEN Urine Culture Screen (Culture CHK Criteria) NO, WBC<10 Results: vital signs stable, current med profile rev'd Diagnosis, Assessment Plan Consultants: urology Free Text DxA P Notes Free text DxA P notes: Assessment: Right distal ureterolithiaisis with mild hydrour eteronephrosis Right flank pain Plan: IVF hydration, pain and nausea control Will consult Urology Place NPO after midnight for possible ureterolit hotripsy tomorrow DVT prophylaxis with SCDs 05/05/20 # Right distal ureterolithiaisis with mild hydro ureteronephrosis with Right flank pain - UA negative - urology consulted - planned for ureterosccopy , lothotripsy and ri ght uretral stent placement - pain management # seasonal allergy - loratadine DVT/PPX - scd plan. ureteroscpy today Trenton Covington 05/05/202146: Attestations Physician Attestation Agree w/findings plan: Agree with the findings and plan as documented [place]]; * my personal evaluation is [ for ureteroscopy today and dc afterwards if cl eared by urology Electronically Signed by Mick Connor MACHINE STAMPER on at 1415 Electronically Signed by Trenton Covington MD on 0 05/05/20 at 2147 RPT #: [id number] END OF REPORT 2020-05-04 19:37:00-00:00 [facility] ([facility]) Hospitalist History Physical REPORT#:[id number] REPORT STATUS: Signed DATE:05/04/20 TIME:1936 PATIENT: HEVER SHI UNIT #: [id number] ROOM/BED: [place] [address] : 89 AGE: 29 SEX: M ATTEND: Akhil Gutierrez MD ADM AUTHOR: Alejandra Vitale * ALL edits or amendments must be made on the CloudTalk/computer document * History of Present Illness HPI Chief complaint: right flank pain RLQ pain Free Text HPI Notes Free Text HPI Notes: 29 y/o male recently dx with kidney ston es was transferred from [facility] ED for Urology consult. Pt states h e started having recurrent right flank and RLQ pain last night. Associated with urinary freuquency and urgency, nausea and vomiting. No dysuria or hematuria. No fevers/chills. At [facility] ED, labs were unremarkable. C T abdomen/pelvis showed a R 4mm distal right ureteral calculus with mild hydroureterone phrosis. He was subsequently transferred here for Urology consult and further care. History Past medical history: Reports: Kidney disease/stones. Smoking status for patients 13 years old or olde r: Light tobacco smoker Medication/Allergy-Vaccine Hx Home Medications: MODAFINIL (PROVIGIL) 100 MG PO DAILY SERTRALINE (ZOLOFT) 50 MG PO DAILY Allergies: Uncoded Allergies: WASPS (Severe, ANAPHYLAXIS 05/04/20) Review of Systems Constitutional: Denies: chills, fever. Skin: Denies: bruising, rash. Eyes: Denies: visual loss/blurred, eye pain. ENT: Denies: nasal congestion, sore throat. Respiratory: Denies: productive cough (sputum), SOB. Cardiovascular: Denies: chest pain, palpitations. GI: Reports: abdominal pain, nausea, vomiting. : Reports: flank pain, frequency, urgency. Denies: dysuria, hematuria. Musculoskeletal: Denies: extremity pain, extremity swelling. Neuro: Denies: dizziness, headache, syncope. Objective General VS/I O: Vital Signs: Date Time Temp Pulse Resp B/P B/P Pulse O2 O2 F low FiO2 Mean Ox Delivery Rate 05/047 44 16 141/77 98 100 Room air 05/042 98.1 44 16 150/76 100 99 Room air Patient Weight Weight (lb): Weight (oz): Weight (kg): 84.000 Physical Exam General appearance: alert, awake, no acute distr ess Head/Eyes: atraumatic, normocephalic ENT: moist mucosal membranes, normal nose Neck: supple/no meningismus, no JVD Cardiovascular: normal capillary refill, normal heart sounds, regular rate rhythm Respiratory: clear to auscultation, symmetric ex pansion, no distress Abdomen: tenderness (RLQ, R CVA tenderness), sof t, no distention Extremities: moves all, no edema Neuro/OPHTHALMOLOGIST RETINA SPECIALIST: alert, normal speech Results Findings/Data: Laboratory Tests 05/04 1952 Urines Urine Color (YEL/STRAW discript) YELLOW Urine Appearance (CLEAR discript) CLEAR Urine pH (5.0 - 7.0 pH UNITS) 6.0 Ur Specific Uehling (1.005 - 1.030 SG) <=1.005 Urine Protein (NEG mg/dL) NEGATIVE Urine Glucose (UA) (NEG mg/dL) NEGATIVE Urine Ketones (NEG mg/dL) NEGATIVE Urine Blood (NEG mg/DL) TRACE Urine Nitrite (NEG SCREEN) NEGATIVE Urine Bilirubin (NEG mg/dL) NEGATIVE Urine Urobilinogen (<2.0 mg/dL) 0.2 Ur Leukocyte Esterase (NEGATIVE Leuk/mcL) NEGAT FANNY Urine RBC (0 - 3 #RBC/HPF) 0-1 Urine WBC (0 - 3 #WBC/HPF) 0-1 Ur Squamous Epith Cells (NONE /HPF) NONE SEEN Urine Bacteria (NONE - TRACE /HPF) NONE SEEN Urine Culture Screen (Culture CHK Criteria) NO, WBC<10 Diagnosis, Assessment Plan Problem List/A P: 1. Right flank pain 2. Ureterolithiasis 3. Hydroureteronephrosis Consultants: urology Free Text DxA P Notes Free text DxA P notes: Assessment: Right distal ureterolithiaisis with mild hydrour eteronephrosis Right flank pain Plan: IVF hydration, pain and nausea control Will consult Urology Place NPO after midnight for possible ureterolit hotripsy tomorrow DVT prophylaxis with SCDs at 2046 RPT #: [id number] END OF REPORT 2020-05-04 19:37:00-00:00 [facility] ([facility]) Hospitalist History Physical REPORT#:[id number] REPORT STATUS: Signed DATE:05/04/20 TIME:1936 PATIENT: HEVER SHI UNIT #: [id number] ROOM/BED: [place] [id number] : 89 AGE: 29 SEX: M ATTEND: Akhil Gutierrez MD ADM AUTHOR: Alejandra Vtiale * ALL edits or amendments must be made on the CloudTalk/computer document * Alejandra Vitale 05/04/201936: History of Present Illness HPI Chief complaint: right flank pain RLQ pain Free Text HPI Notes Free Text HPI Notes: 29 y/o male recently dx with kidney ston es was transferred from [facility] ED for Urology consult. Pt states h e started having recurrent right flank and RLQ pain last night. Associated with urinary freuquency and urgency, nausea and vomiting. No dysuria or hematuria. No fevers/chills. At [facility] ED, labs were unremarkable. C T abdomen/pelvis showed a R 4mm distal right ureteral calculus with mild hydroureterone phrosis. He was subsequently transferred here for Urology consult and further care. History Past medical history: Reports: Kidney disease/stones. Smoking status for patients 13 years old or olde r: Light tobacco smoker Medication/Allergy-Vaccine Hx Home Medications: MODAFINIL (PROVIGIL) 100 MG PO DAILY SERTRALINE (ZOLOFT) 50 MG PO DAILY Allergies: Uncoded Allergies: WASPS (Severe, ANAPHYLAXIS 05/04/20) Review of Systems Constitutional: Denies: chills, fever. Skin: Denies: bruising, rash. Eyes: Denies: visual loss/blurred, eye pain. ENT: Denies: nasal congestion, sore throat. Respiratory: Denies: productive cough (sputum), SOB. Cardiovascular: Denies: chest pain, palpitations. GI: Reports: abdominal pain, nausea, vomiting. : Reports: flank pain, frequency, urgency. Denies: dysuria, hematuria. Musculoskeletal: Denies: extremity pain, extremity swelling. Neuro: Denies: dizziness, headache, syncope. Objective General VS/I O: Vital Signs: Date Time Temp Pulse Resp B/P B/P Pulse O2 O2 Flow FiO2 Mean Ox Delivery Rate 05/047 44 16 141/77 98 100 Room air 05/04 1852 98.1 44 16 150/76 100 99 Room air Patient Weight Weight (lb): Weight (oz): Weight (kg): 84.000 Physical Exam General appearance: alert, awake, no acute distr ess Head/Eyes: atraumatic, normocephalic ENT: moist mucosal membranes, normal nose Neck: supple/no meningismus, no JVD Cardiovascular: normal capillary refill, normal heart sounds, regular rate rhythm Respiratory: clear to auscultation, symmetric ex pansion, no distress Abdomen: tenderness (RLQ, R CVA tenderness), sof t, no distention Extremities: moves all, no edema Neuro/OPHTHALMOLOGIST RETINA SPECIALIST: alert, normal speech Results Findings/Data: Laboratory Tests 05/04 1952 Urines Urine Color (YEL/STRAW discript) YELLOW Urine Appearance (CLEAR discript) CLEAR Urine pH (5.0 - 7.0 pH UNITS) 6.0 Ur Specific Uehling (1.005 - 1.030 SG) <=1.005 Urine Protein (NEG mg/dL) NEGATIVE Urine Glucose (UA) (NEG mg/dL) NEGATIVE Urine Ketones (NEG mg/dL) NEGATIVE Urine Blood (NEG mg/DL) TRACE Urine Nitrite (NEG SCREEN) NEGATIVE Urine Bilirubin (NEG mg/dL) NEGATIVE Urine Urobilinogen (<2.0 mg/dL) 0.2 Ur Leukocyte Esterase (NEGATIVE Leuk/mcL) NEGAT FANNY Urine RBC (0 - 3 #RBC/HPF) 0-1 Urine WBC (0 - 3 #WBC/HPF) 0-1 Ur Squamous Epith Cells (NONE /HPF) NONE SEEN Urine Bacteria (NONE - TRACE /HPF) NONE SEEN Urine Culture Screen (Culture CHK Criteria) NO, WBC<10 Diagnosis, Assessment Plan Problem List/A P: 1. Right flank pain 2. Ureterolithiasis 3. Hydroureteronephrosis Consultants: urology Free Text DxA P Notes Free text DxA P notes: Assessment: Right distal ureterolithiaisis with mild hydrour eteronephrosis Right flank pain Plan: IVF hydration, pain and nausea control Will consult Urology Place NPO after midnight for possible ureterolit hotripsy tomorrow DVT prophylaxis with SCDs at 2046 Electronically Signed by Seth Gutierrez MD on 04/08 04/26 at 0558 RPT #: [id number] END OF REPORT 2020-05-04 18:57:00-00:00 [facility] ([facility]) EMERGENCY PROVIDER REPORT REPORT#:[id number] REPORT STATUS: Signed DATE:05/04/20 TIME:1856 PATIENT: HEVER SHI UNIT #: [id number] [address] : [birth year] AGE: 29 SEX: M PCP PHYS: No Primar y or Family Physician SERVICE AUTHOR: Ej Mathews DO * ALL edits or amendments must be made on the CloudTalk/computer document * HPI- Male General Initial Greet Date/Time 05/04/201856 Presentation Chief Complaint Dysuria, Flank pain R Hx Obtained From Patient Onset Occurred Weeks ago (4) Progression since Onset Constant Context of Onset Spontaneous Caused by No trauma by history Location Flank R Quality Same as prior Radiation Does not radiate. Severity: Onset Moderate Severity: Current Moderate Associated with Reports: Abdominal pain, Nausea. Associated Other Pt denies other symptoms Exacerbated by Nothing Relieved by Prescription meds Context Recent Healthcare Recent doc tor visit, Recent testing, Previous diagnosis, Prior workup Similar Sx Previous Yes Additional Context 29 yom transferred from [facility] for intractable r flank pain secondary to kindey stone . Patient dx with 4 mm kidney stone 5 weeks ago and symptoms seemingly had self resolved. Ye sterday , patient reports R flank pain with n/v. Seen this [facility]noo n at [facility] and dx with hydroutero-nephrosis. Review of labs showed wnl CBC and CMP with elevated total bili of 1.5 Risk- Male Risk Stratification Torsion Risk factors reviewed Review of Systems ROS Statements All systems rev neg except as marked. Focused Review of Systems GI Reports: Nausea, Vomiting. Male Reports: Flank pain. Past Medical History - Adult Stated Complaint KIDNEY STONE Allergies Uncoded Allergies: WASPS (Severe, ANAPHYLAXIS 05/04/20) Home Medications Reported Medications SERTRALINE (ZOLOFT) 50 MG PO DAILY MODAFINIL (PROVIGIL) 100 MG PO DAILY Review of Nursing Notes Rev avail, and agree Pt reports no significant: Past medical history, Social history Additional Surgical History remote surgery Physical Exam Vital Signs Vital Signs First Documented: Result Date Time Pulse Ox 99 05/04 1852 B/P 150/76 05/04 185 B/P Mean 100 05/04 185 O2 Delivery Room air 05/04 185 Temp 36.7 05/04 185 Pulse 44 05/04 185 Resp 16 05/04 1852 Last Documented: Result Date Time Pulse Ox 99 05/04 1852 B/P 150/76 05/04 1852 B/P Mean 100 05/04 185 O2 Delivery Room air 05/04 1852 Temp 36.7 05/04 185 Pulse 44 05/04 185 Resp 16 05/04 1852 Review of Vital Signs Reviewed, Vital signs abno rmal Focused PE General/Const General/Const Awake, Alert, Well appearing Abdomen/GI Abdomen/GI Atraumatic, Soft, (+) R CVAT Skin Skin Color NL, No rash, Warm, Dry, Turgor NL Genitourinary General Exam deferred Interpretation Diagnostics Lab Results Interpretation Results Microbiology: Date/Time Procedure - Status Source Growth 05/04 1900 MRSA Screen - ORD NASAL Re-Evaluation MDM ED Course Medication(s) Ordered Medication(s) Ordered: Central Nervous System Agents Sig/Cleopatra Start time Last Medication Dose Route Stop Time Status Admin Acetaminophen 650 MG Q4H PRN PRN 05/04 1900 AC 05/04 PO 06/03 185 2143 Morphine Sulfate 4 MG Q3H PRN PRN 05/04 1900 AC 05/04 IV 05/14 1859 1928 Electrolytic, Caloric, And Lorenzo Sig/Cleopatra Start time Last Medication Dose Route Stop Time Status Admin Sodium Chloride 1,000 ML .[id number] 05/04 1900 AC 05/05 IV 05/05 1758 0815 Gastrointestinal Drugs Sig/Cleopatra Start time Last Medication Dose Route Stop Time Status Admin Docusate Sodium 100 MG Q12H PRN PRN 05/04 1900 AC PO 06/03 185 Ondansetron HCl 4 MG Q4H PRN PRN 05/04 1900 AC 05/04 IV 06/03 185 1930 Differential Diagnosis Differential Diagnosis Pyelonephritis, acute, Ur eterolithiasis, Urinary obstruction, Urinary retention, Urinary tract in fection, Urolithiasis Patient Discharge Departure Vital Signs/Condition Vital Signs First Documented: Result Date Time Pulse Ox 99 05/04 1852 B/P 150/76 05/04 1852 B/P Mean 100 05/04 1852 O2 Delivery Room air 05/04 185 Temp 36.7 05/04 1852 Pulse 44 05/04 1852 Resp 16 05/04 185 Last Documented: Result Date Time Pulse Ox 99 05/04 1852 B/P 150/76 05/04 1852 B/P Mean 100 05/04 1852 O2 Delivery Room air 05/04 185 Temp 36.7 05/04 1852 Pulse 44 05/04 1852 Resp 16 05/04 185 All vital signs available at the time of this en try have been reviewed. Condition Stable Clinical Impression Clinical Impression Primary Impression: Obstructive uropathy Secondary Impressions: Kidney stone on right shae e Disposition Decision Admit Admit Physician Name Seth Gutierrez MD Request Time 1920 Request Date 05/04/20 )( Admission Accepts Yes )( Accepted Time 1920 )( Accepted Date 05/04/20 Call Information will see patient, agrees with eval, agrees with plan Discharge/Care Plan Counseled Regarding Diagnosis, Lab results, Imag ing studies at 0922 [facility] #: [id number] END OF REPORT
[2023-03-28] MEDS ORDERED: ACETAMINOPHEN 500 MG TAB ONE (16:51)
--- NOTE | 2023-03-28 17:36 | RAD REPORT ---
EXAM DESCRIPTION: RAD - Chest Pa And Lat (2 Views) - 03/28/2023 5:13 pm CLINICAL HISTORY: Cough;Fever Chest pain. COMPARISON: <Comparisons> FINDINGS: Mild opacity is seen in the lingula likely developing pneumonia. The lungs are otherwise c lear. The heart is normal in size. No displaced fractures. IMPRESSION: Mild lingular pneumonia.
--- NOTE | 2023-03-28 18:02 | ER ---
Nurse's Notes [facility] Name: Hever Knight Age: 32 yrs Sex: Male : 1990 Arrival Date: 03/28/2023 Time: 15:20 Bed 10 Private MD: Diagnosis: Other pneumonia, unspecified organism;Fever, unspecified;Elevated blood-pressure reading, without diagnosis of hypertension Presentation: 03/28 15:29 Chief complaint: Patient states: body aches, fever, fatigue. Symptoms started rs5 yesterday. Coronavirus screen: cough unrelated to allergies, fatigue. Ebola Screen: Patient denies exposure to infectious person. Patient denies travel to an Ebola-affected area in the 21 days before illness onset. 15:29 Method Of Arrival: Ambulatory rs5 15:29 Initial Sepsis Screen: Does the patient meet any 2 criteria? Temp <36.0*C (96.8*F)) or rs5 > 38.3*C (100.9*F). HR > 90 bpm. Yes Does the patient have a suspected source of infection? Yes: If YES to both, name of provider notified: Christos Hamlin DO. Risk Assessment: Do you want to hurt yourself or someone else? Patient reports no desire to harm self or others. Onset of symptoms was March 27, 2023. 15:29 Acuity: PURNIMA 3 rs5 Historical: - Allergies: 15:33 Wasps; rs5 - PMHx: 15:33 Anxiety; Depressive disorder; Kidney stone; osteomyelitis; rs5 - PSHx: 15:33 kidney stone removal; right wrist scope; rs5 - Immunization history:: Adult Immunizations up to date. - Social history:: Smoking status: Patient denies any tobacco usage or history of. Screenin:[address] [facility] ED Fall Risk Assessment (Adult) History of falling in the last 3 months, tf2 including since admission No falls in past 3 months (0 pts) Confusion or Disorientation No (0 pts) Intoxicated or Sedated No (0 pts) Impaired Gait No (0 pts) Mobility Assist Device Used No (0 pt) Altered Elimination No (0 pt) Score/Fall Risk Level 0 - 2 = Low Risk Oriented to surroundings, Maintained a safe environment, Educated pt \T\ family on fall prevention, incl call for assistance when getting out of bed. Abuse screen: Denies threats or abuse. Denies injuries from another. Nutritional screening: No deficits noted. Tuberculosis screening: No symptoms or risk factors identified. Assessment: 16:00 General: Appears ill, well groomed, well developed, well nourished. Neuro: No deficits tf2 noted. Cardiovascular: No deficits noted. Respiratory: Airway is patent Respiratory effort is unlabored. GI: Reports intolerance of food, nausea. : No deficits noted. EENT: No deficits noted. Musculoskeletal: Reports generalized body aches. Vital Signs: 15:29 BP 153 / 78; Pulse 98; Resp 18; Temp 100.6; Pulse Ox 99% ; rs5 16:00 BP 108 / 76; Pulse 88; Resp 18; Temp 98.9; Pulse Ox 99% on R/A; tf2 18:30 BP 128 / 80; Pulse 92; Resp 15; Temp 98.7; Pulse Ox 100% on R/A; tf2 [place] Coma Score: 16:00 Eye Response: spontaneous(4). Motor Response: obeys commands(6). Verbal Response: tf2 oriented(5). Total: 15. ED Course: 15:24 Patient arrived in ED. im 15:25 Christos Hamlin DO is Attending Physician. ms3 15:29 Arm band placed on. rs5 15:33 Triage completed. rs5 15:45 COVID-19 SARS RT PCR Sent. aw1 15:45 Flu Sent. aw1 16:00 No provider procedures requiring assistance completed. tf2 16:00 Bed in low position. Call light in reach. Side rails up X 1. Side rails up X2. Provided tf2 Education on: meds given. 16:36 Stephanie Tamayo, RN is Primary Nurse. tf2 17:13 Chest Pa And Lat (2 Views) XRAY In Process Unspecified. EDMS Administered Medications: 16:45 Drug: Acetaminophen PO 1000 mg Route: PO; tf2 Outcome: 18:02 Discharge ordered by . ms3 18:57 Patient left the ED. rs5 19:01 Discharged to home ambulatory. tf2 19:01 Condition: stable 19:01 Discharge instructions given to patient, Instructed on discharge instructions, follow up and referral plans. medication usage, Demonstrated understanding of instructions, follow-up care, medications, Prescriptions given X 2. Signatures: Dispatcher [employer] EDMS Christos Hamlin DO ms3 Kermit Juarez, RN RN rs5 Cristina Loredo Alyssa aw1 Stephanie Tamayo, RN RN tf2 Corrections: (The following items were deleted from the chart) 15:36 15:33 Allergies: Minor reaction to Augmentin; rs5 rs5 15:57 15:29 Initial Sepsis Screen: Does the patient meet any 2 criteria? Temp <36.0*C rs5 (96.8*F)) or > 38.3*C (100.9*F). HR > 90 bpm. Yes Does the patient have a suspected source of infection? rs5
--- NOTE | 2023-03-28 18:02 | EDPHYS ---
Physician Documentation [facility] Name: Hever Knight Age: 32 yrs Sex: Male : 1990 Arrival Date: 03/28/2023 Time: 15:20 Bed 10 Private MD: ED Physician Christos Hamlin HPI: 03/28 16:53 This 32 yrs old Male presents to ER via Ambulatory with complaints of Flu Symptoms. ms3 16:53 32-year-old male with past medical history of anxiety, depression, kidney stones, ms3 osteomyelitis presents for body aches, fever, postnasal drip, fatigue that began yesterday afternoon. Patient states he was seen in the [facility] where a negative flu, COVID, strep were performed at 1:40 PM. Patient endorses a dry cough, fever up to 102.9. Patient states he took Tylenol 1 g at 5 AM. Patient denies alleviating or inciting factors.. Historical: - Allergies: 15:33 Wasps; rs5 - PMHx: 15:33 Anxiety; Depressive disorder; Kidney stone; osteomyelitis; rs5 - PSHx: 15:33 kidney stone removal; right wrist scope; rs5 - Immunization history:: Adult Immunizations up to date. - Social history:: Smoking status: Patient denies any tobacco usage or history of. ROS: 16:54 Neck: Negative for injury, pain, and swelling, Cardiovascular: Negative for chest pain, ms3 and palpitations. Respiratory: Negative for shortness of breath, cough, wheezing, and pleuritic chest pain, Abdomen/GI: Negative for abdominal pain, nausea, vomiting, diarrhea, and constipation, MS/Extremity: Negative for injury and deformity, Skin: Negative for injury, rash, and discoloration. 16:54 Constitutional: Positive for body aches, chills, fever. 16:54 All other systems are negative. Exam: 16:54 Constitutional: This is a well developed, well nourished patient who is awake, alert, ms3 and in no acute distress. Head/Face: Normocephalic, atraumatic. Neck: Trachea midline, no cervical lymphadenopathy. Supple, full range of motion without nuchal rigidity, or vertebral point tenderness. No Meningismus. Chest/axilla: Normal chest wall appearance and motion. Nontender with no deformity. Cardiovascular: Regular rate and rhythm with a normal S1 and S2. No gallops, murmurs, or rubs. Normal PMI, no JVD. No pulse deficits. Respiratory: Lungs have equal breath sounds bilaterally, clear to auscultation and percussion. No rales, rhonchi or wheezes noted. No increased work of breathing, no retractions or nasal flaring. Abdomen/GI: Soft, non-tender, with normal bowel sounds. No distension or tympany. No guarding or rebound. No evidence of tenderness throughout. Skin: Warm, dry with normal turgor. Normal color with no rashes, no lesions, and no evidence of cellulitis. MS/ Extremity: Pulses equal, no cyanosis. Neurovascular intact. Full, normal range of motion. Vital Signs: 15:29 BP 153 / 78; Pulse 98; Resp 18; Temp 100.6; Pulse Ox 99% ; rs5 16:00 BP 108 / 76; Pulse 88; Resp 18; Temp 98.9; Pulse Ox 99% on R/A; tf2 18:30 BP 128 / 80; Pulse 92; Resp 15; Temp 98.7; Pulse Ox 100% on R/A; tf2 [place] Coma Score: 16:00 Eye Response: spontaneous(4). Motor Response: obeys commands(6). Verbal Response: tf2 oriented(5). Total: 15. MDM: 15:34 Patient medically screened. ms3 16:54 Differential diagnosis: viral Infection, URI, pneumonia. ms3 17:57 Data reviewed: vital signs, nurses notes, lab test result(s), radiologic studies, plain ms3 films, and as a result, I will discharge patient. I considered the following discharge prescriptions or medication management in the emergency department Medications were administered in the Emergency Department. See MAR. Independent interpretation of the following test(s) in the Emergency Department X-Ray: My interpretation is CXR images reviewed by me show PNA.. Counseling: I had a detailed discussion with the patient and/or guardian regarding the historical points, exam findings, and any diagnostic results supporting the discharge/admit diagnosis, lab results, radiology results, the need for outpatient follow up, to return to the emergency department if symptoms worsen or persist or if there are any questions or concerns that arise at home. Response to treatment: the patient's symptoms have mildly improved after treatment, and as a result, I will discharge patient. Special discussion: I discussed with the patient/guardian in detail that at this point there is no indication for admission to the hospital. It is understood, however, that if the symptoms persist or worsen the patient needs to return immediately for re-evaluation. ED course: Discussed negative flu, COVID and chest x-ray showing lingular pneumonia with patient. Patient to follow-up with his primary care physician in 2 to 3 days. Patient stands and agrees with plan. All questions were answered. Return precautions discussed include worsening symptoms, or any concerns. On reevaluation patient is improved, alert and orient x4, no apparent distress, nontoxic-appearing, ambulatory in emergency department, speaking full sentences. 03/28 15:35 Order name: Flu; Complete Time: 16:43 ms3 03/28 15:35 Order name: COVID-19 SARS RT PCR; Complete Time: 16:43 ms3 03/28 16:44 Order name: Chest Pa And Lat (2 Views) XRAY; Complete Time: 17:53 ms3 Administered Medications: 16:45 Drug: Acetaminophen PO 1000 mg Route: PO; tf2 Disposition Summary: 03/28/23 18:02 Discharge Ordered Location: Home ms3 Condition: Stable ms3 Diagnosis - Other pneumonia, unspecified organism ms3 - Fever, unspecified ms3 - Elevated blood-pressure reading, without diagnosis of hypertension ms3 Followup: ms3 - With: Private Physician - When: 2 - 3 days - Reason: Recheck today's complaints Discharge Instructions: - Discharge Summary Sheet ms3 - Fever, Adult ms3 - Community-Acquired Pneumonia, Adult ms3 Forms: - Medication Reconciliation Form ms3 - Thank You Letter ms3 - Antibiotic Education ms3 - Prescription Opioid Use ms3 - Patient Portal Instructions ms3 - Leadership Thank You Letter ms3 Prescriptions: - Tessalon Perles 100 mg Oral Capsule - take 1 capsule by ORAL route every 8 hours As needed; 15 capsule; Refills: 0, ms3 Product Selection Permitted - Doxycycline Monohydrate 100 mg Oral Tablet - take 1 tablet by ORAL route every 12 hours for 10 days; 20 tablet; Refills: 0, ms3 Product Selection Permitted Signatures: Dispatcher [facility] Christos Hamlin DO DO ms3 Kermit Juarez RN RN rs5 Tamayo, Stephanie, RN RN tf2 Corrections: (The following items were deleted from the chart) 15:36 15:33 Allergies: Minor reaction to Augmentin; rs5 rs5 16:55 16:53 . ms3 ms3
[2023-03-28 19:14] VITALS: BP 153/78; TEMP 100.6; O2SAT 99
== END 2023-03-28 18:57 | disposition home or self-care (01) ==
LOC: ER 15:20
DX: J18.8 Other pneumonia, unspecified organism (principal); R03.0 Elevated blood-pressure reading, without diagnosis of hypertension; Z91.038 Other insect allergy status; Z20.822 Contact with and (suspected) exposure to COVID-19
CPT/HCPCS: 71046; 87635; 87804; 99284